=== PATIENT | male | born 1935 | race Caucasian/White ===

== ENCOUNTER 2024-04-06 06:45 | Day surgery (SDC) | payer MEDICARE, BC ==
[2024-04-06] VITALS (10 sets, daily range): BP systolic 128–144; BP diastolic 73–79; PULSE 67–78; RESP 10–16; O2SAT 96–100
[~2024-04-06] VITALS: Ht 175.3 cm; Wt 68.2 kg
[~2024-04-06 06:45] MED LIST: ACET-75 PO; APIX5TAB3 PO; ATOR10TA87 PO; ATRNS BOTHNARES; AZEL30SP3 BOTHNARES; CETI10CA PO; CHOL400T57 PO; FLUT16SP26 BOTHNARES; LUTE1CAP4 PO; MECO10005 PO; PROP10DR15; VITA40TA; [UNRECOGNIZED DRUG - OTHER]
[2024-04-06] MEDS ORDERED: fentaNYL/PF 50MCG/1 ML 2ML syringe ONE (08:07)
[2024-04-06] MEDS ORDERED: MIDAZolam 1 MG/ML 5ML VIAL ONE (08:07)
[2024-04-06] MEDS ORDERED: diphenhydrAMINE 50 mg/ml inj ONE (08:07)
[2024-04-06] MEDS ORDERED: LIDOcaine 2% Viscous 15ml cup ONE (08:07)
[2024-04-06] MEDS ORDERED: simethicone 40mg/0.6ml oral drops 30ml ONE (08:50)
== END 2024-04-06 09:33 | disposition home or self-care (01) ==
LOC: GI LAB 06:45
PROVIDERS: ATTEND Internal Medicine Gastroenterology
DX: R13.10 Dysphagia, unspecified (principal); K29.50 Unspecified chronic gastritis without bleeding; K22.10 Ulcer of esophagus without bleeding; K21.00 Gastro-esophageal reflux disease with esophagitis, without bleeding; Z79.01 Long term (current) use of anticoagulants; K31.89 Other diseases of stomach and duodenum; Z79.899 Other long term (current) drug therapy
CPT/HCPCS: 43239; A4620; J2250; J3010; J7030; Z7512; 88305; 99152; J1200

== ENCOUNTER 2024-06-06 07:17 | Day surgery (SDC) | payer MEDICARE, BC ==
[~2024-06-06] VITALS: Ht 175.3 cm; Wt 68.2 kg
[2024-06-06 07:59] VITALS: BP 127/64; PULSE 77; RESP 16; TEMP 97.5
[2024-06-06] MEDS ORDERED: simethicone 40mg/0.6ml oral drops 30ml ONE (08:58)
[2024-06-06] MEDS ORDERED: propofol inj 20 ML IV ONE (09:10)
[2024-06-06 09:15] VITALS: BP 113/64; PULSE 76; RESP 16; O2SAT 94
[2024-06-06 09:25] VITALS: BP 113/66; PULSE 76; RESP 17; O2SAT 99
[2024-06-06 09:35] VITALS: BP 130/74; PULSE 76; RESP 12; O2SAT 98
[2024-06-06 09:45] VITALS: BP 123/78; PULSE 79; RESP 14; O2SAT 99
== END 2024-06-06 10:00 | disposition home or self-care (01) ==
LOC: GI LAB 07:17
PROVIDERS: ATTEND Internal Medicine Gastroenterology
DX: R12 Heartburn (principal); K22.2 Esophageal obstruction; K31.89 Other diseases of stomach and duodenum; G47.30 Sleep apnea, unspecified; I48.91 Unspecified atrial fibrillation; Z98.890 Other specified postprocedural states; K21.9 Gastro-esophageal reflux disease without esophagitis; Z90.49 Acquired absence of other specified parts of digestive tract; Z79.899 Other long term (current) drug therapy; Z85.828 Personal history of other malignant neoplasm of skin
CPT/HCPCS: 43239; A4620; J2704; J7030; Z7512

== ENCOUNTER 2025-02-10 08:53 | Day surgery (SDC) | payer MEDICARE, BC ==
[~2025-02-10] VITALS: Ht 175.3 cm; Wt 68.0 kg
[2025-02-10] VITALS (9 sets, daily range): BP systolic 100–133; BP diastolic 62–75; PULSE 62–79; RESP 10–15; TEMP 96.9; O2SAT 97–100
[~2025-02-10 08:53] MED LIST changes: -ACET-75 PO; +ACET650T12 PO; +AMYL1CAP60 PO; -AZEL30SP3 BOTHNARES; +CALCIUM PO; +CETI-194 PO; -CETI10CA PO; -CHOL400T57 PO; +GLUCOSAMINE/CHON PO; +LIDOcaine 2% Viscous 15ml cup MM ONE; +METAMUCIL PO; +MULT-1249 PO; +PANT40SU2 PO; -PROP10DR15; +REFRESH RELIEVA EACHEYE; +VIT D PO; +VITA100C25 PO; -VITA40TA; -[UNRECOGNIZED DRUG - OTHER]; +ringers solution, lacted 1,000 ML IV SCH
[2025-02-10] MEDS ORDERED: propofol 10mg/ml 20ml vial IV ONE (11:10)
--- NOTE | 2025-02-14 07:03 | PATHOLOGY REPORT ---
[facility] [address] [place] [address] SURGICAL PATHOLOGY REPORT CaseNumber: [id number] Surgeon:Swapna Nesbitt M.D. CLINICAL INFORMATION CLINICAL INFORMATION: Not provided. DIAGNOSIS DIAGNOSIS: GASTRIC ANTRUM, BIOPSIES X 2 - NO SIGNIFICANT INFLAMMATION, EDEMA, OR VASCULAR CONGESTION - NO INTESTINAL METAPLASIA - NO DYSPLASIA OR MALIGNANCY - NO H. PYLORI ORGANISMS BY IMMUNOHISTOCHEMISTRY MICROSCOPIC DESCRIPTION MICROSCOPIC DESCRIPTION: Reviewed is a single H&E-stained slide showing serial sections and levels of two fragments of gastric antral-type mucosa. There is no significant inflammation, edema, or vascular congestion. There is no intestinal metaplasia. There are no dysplastic or neoplastic features. Also, no H. pylori organisms are highlighted by immunohistochemistry. GROSS DESCRIPTION GROSS DESCRIPTION: Received in a container of formalin labeled with the patient's name, number, and "antrum BX" are two pieces of luna tissue 0.4 x 0.2 x 0.1 and 0.5 x 0.1 x 0.1 cm. The specimen is entirely submitted as A1. The time at which the specimen was removed was 1114. The time at which the specimen was placed in formalin was 1114. Electronically signed by: Rishabh Vizcarra M.D. 02/14/2025 4:36:00 AM
== END 2025-02-10 11:12 | disposition home or self-care (01) ==
LOC: PAS 08:53
PROVIDERS: ATTEND Internal Medicine Gastroenterology
DX: R13.10 Dysphagia, unspecified (principal); K44.9 Diaphragmatic hernia without obstruction or gangrene; K22.2 Esophageal obstruction; K22.10 Ulcer of esophagus without bleeding; E78.5 Hyperlipidemia, unspecified; F17.210 Nicotine dependence, cigarettes, uncomplicated; G47.33 Obstructive sleep apnea (adult) (pediatric); I48.91 Unspecified atrial fibrillation; I34.1 Nonrheumatic mitral (valve) prolapse; K21.9 Gastro-esophageal reflux disease without esophagitis; M19.90 Unspecified osteoarthritis, unspecified site; N40.0 Benign prostatic hyperplasia without lower urinary tract symptoms; Z85.038 Personal history of other malignant neoplasm of large intestine; Z90.49 Acquired absence of other specified parts of digestive tract; Z98.49 Cataract extraction status, unspecified eye; Z85.828 Personal history of other malignant neoplasm of skin; Z82.49 Family history of ischemic heart disease and other diseases of the circulatory system
CPT/HCPCS: 43239; 43450; A4615; J2704; J7120; Z7512; Z7610